=== PATIENT | male | born 1995 | race Two or more races ===

== ENCOUNTER 2017-10-17 13:28 | Emergency (ER) | payer SELFPAY ==
[~2017-10-17] VITALS: Ht 175.3 cm; Wt 77.7 kg
[2017-10-17 13:59] VITALS: BP 130/80
== END 2017-10-17 14:23 | disposition home or self-care (01) ==
LOC: ER 13:28
DX: S39.012A Strain of muscle, fascia and tendon of lower back, initial encounter (principal); V49.49XA Driver injured in collision with other motor vehicles in traffic accident, initial encounter; Y93.89 Activity, other specified; Y99.8 Other external cause status; Y92.410 Unspecified street and highway as the place of occurrence of the external cause
CPT/HCPCS: 72100